=== PATIENT | male | born 2000 | race African-American/Black ===

== ENCOUNTER 2024-02-13 17:42 | Emergency (ER) | payer MEDICAID, OTHER ==
[~2024-02-13] VITALS: Ht 170.2 cm; Wt 64.2 kg
[2024-02-13 18:30] LABS: Urine Bacteria None Seen /hpf (None Seen)
[2024-02-13 18:31] VITALS: BP 108/67; PULSE 90; RESP 16; O2SAT 97
[2024-02-13 18:41] LABS: Urine Blood Negative /uL (Negative); Urine Clarity Clear (Clear); Urine Color Yellow (Yellow); Urine Hyaline Cast FEW /lpf (0 - 2); Urine Mucus FEW (None Seen); Urine Protein, UAD 1+ (Negative); Urine Specific Gravity 1.031 (1.001-1.035); Urine Urobilinogen 2 mg/dL (Negative); Urine WBC 1 /hpf (0 - 3); Urine pH 6.5 (5.0-9.0)
== END 2024-02-14 02:22 | disposition left against medical advice (07) ==
LOC: ER 17:42
DX: R30.9 Painful micturition, unspecified (principal); R31.9 Hematuria, unspecified; Z53.21 Procedure and treatment not carried out due to patient leaving prior to being seen by health care provider
CPT/HCPCS: 81001

== ENCOUNTER → 2024-02-13 22:20 | Emergency (ER) | payer MEDICAID | END | disposition left against medical advice (07) | LOC: ER 22:20 | DX: N39.9 Disorder of urinary system, unspecified (principal); Z53.21 Procedure and treatment not carried out due to patient leaving prior to being seen by health care provider ==